=== PATIENT | male | born 1950 | race African-American/Black ===

== ENCOUNTER 2017-01-16 13:12 | Emergency (ER) | payer MEDICARE, OTHER ==
[~2017-01-16] VITALS: Ht 182.9 cm; Wt 172.7 kg
[~2017-01-16 13:12] MED LIST: METH10 PO
[2017-01-16 15:04] LABS: BASOPHILS % (AUTO) 0.5 % (0.0-2.0); EOSINOPHILS % (AUTO) 1.1 % (1.0-6.0); HEMATOCRIT 42.8 % (41-53); HEMOGLOBIN 14.5 g/dL (13.5-17.5); LYMPHOCYTES # (AUTO) 2.4 K/uL (1.0-4.8); LYMPHOCYTES % (AUTO) 33.8 % (22.0-44.0); MEAN CORPUSCULAR VOLUME 94 fL (80-100); MONOCYTES # (AUTO) 0.4 K/uL (0.1-1.0); MONOCYTES % (AUTO) 6.3 % (2.0-9.0); NEUTROPHILS # (AUTO) 4.1 K/uL (1.8-7.7); NEUTROPHILS % (AUTO) 58.3 % (40.0-70.0); PLATELET COUNT (AUTO) 162 K/uL (150-450); RED BLOOD CELL COUNT(AUTO) 4.54 MIL/uL (4.50-5.90); RED CELL DISTRIBUTION WIDTH 15.5 % (11.5-14.5)
[2017-01-16 15:11] LABS: ANION GAP 3 mmol/L (8-16); CALCIUM, TOTAL 8.4 mg/dL (8.8-10.5); CARBON DIOXIDE 32 mmol/L (22-29); CHLORIDE 102 mmol/L (98-107); CREATININE 1.36 mg/dL (0.60-1.30); GLOMERULAR FILTR. RATE CALC > 60 mL/min (>60); POTASSIUM 3.9 mmol/L (3.5-5.1); SODIUM SERUM 137 mmol/L (136-145); UREA NITROGEN, BLOOD 22 mg/dL (7-18)
[2017-01-16 15:18] LABS: ALANINE AMINOTRANSFERASE 42 U/L (12-78); ALBUMIN 3.2 g/dL (3.4-5.0); ASPARTATE AMINOTRANSFERASE 27 U/L (15-37); BILIRUBIN,TOTAL 0.4 mg/dL (0.1-1.0); TOTAL PROTEIN, SERUM 6.9 g/dL (6.4-8.2)
[2017-01-16] MEDS ORDERED: ALBUTEROL SULFATE 2.5 MG/0.5 ML NEB SOLUTION NEB ONE (15:30)
[2017-01-16] MEDS ORDERED: IPRATROPIUM BROMIDE 0.5 MG/2.5 ML NEB SOLUTION NEB ONE (15:30)
[2017-01-16 16:47] VITALS: BP 147/86
== END 2017-01-16 17:16 | disposition home or self-care (01) ==
LOC: EMS 13:14
DX: R53.1 Weakness (principal); S50.812A Abrasion of left forearm, initial encounter; S80.811A Abrasion, right lower leg, initial encounter; M19.90 Unspecified osteoarthritis, unspecified site; I48.91 Unspecified atrial fibrillation; W01.0XXA Fall on same level from slipping, tripping and stumbling without subsequent striking against object, initial encounter; Y93.89 Activity, other specified; Y99.8 Other external cause status; Y92.89 Other specified places as the place of occurrence of the external cause
CPT/HCPCS: 36415; 80053; 85025; 94640; 99284; G0480

== ENCOUNTER 2019-06-30 19:55 | Inpatient (IN) | payer MEDICARE, OTHER ==
[~2019-06-30] VITALS: Ht 182.9 cm; Wt 179.2 kg
[~2019-06-30 19:55] MED LIST changes: +ATOR40TA28 PO; +CARV3 PO; +DIAZ5 PO; +DSS100 PO; +ESCI20TA PO; +FURO40 PO; +GABA-531 PO; +KDUR10 PO; +LISI-662 PO; +OXYC-601 PO; +PANT40TA25 PO; +SOTA80 PO; +SPIR50 PO
[2019-06-30] MEDS ORDERED: IPRATROPIUM BROMIDE 0.5 MG/2.5 ML NEB SOLUTION NEB ONE (20:45)
[2019-06-30] MEDS ORDERED: ALBUTEROL SULFATE 5 MG/ML 20 ML NEB SOLN [BULK] NEB ONE (20:45)
[2019-06-30 21:12] LABS: BASOPHILS % (AUTO) 0.6 % (0.0-2.0); EOSINOPHILS % (AUTO) 1.6 % (1.0-6.0); HEMATOCRIT 37.7 % (41-53); HEMOGLOBIN 12.5 g/dL (13.5-17.5); LYMPHOCYTES # (AUTO) 1.5 K/uL (1.0-4.8); LYMPHOCYTES % (AUTO) 20.7 % (22.0-44.0); MEAN CORPUSCULAR HEMOGLOBIN 30.8 pg (26.0-34.0); MEAN CORPUSCULAR HGB CONC 33.1 G/dL (31.0-37.0); MEAN CORPUSCULAR VOLUME 93 fL (80-100); MONOCYTES # (AUTO) 0.6 K/uL (0.1-1.0); MONOCYTES % (AUTO) 8.8 % (2.0-9.0); NEUTROPHILS # (AUTO) 4.8 K/uL (1.8-7.7); NEUTROPHILS % (AUTO) 68.3 % (40.0-70.0); PLATELET COUNT (AUTO) 145 K/uL (150-450); RED BLOOD CELL COUNT(AUTO) 4.06 MIL/uL (4.50-5.90); RED CELL DISTRIBUTION WIDTH 15.8 % (11.5-14.5)
[2019-06-30 21:32] LABS: ANION GAP 6 mmol/L (8-16); CALCIUM, TOTAL 9.2 mg/dL (8.8-10.5); CARBON DIOXIDE 31 mmol/L (22-29); CHLORIDE 99 mmol/L (98-107); CREATININE 1.15 mg/dL (0.60-1.30); GLOMERULAR FILTR. RATE CALC > 60 mL/min (>60); GLUCOSE,RANDOM 119 mg/dL (70-110); POTASSIUM 4.2 mmol/L (3.5-5.1); SODIUM SERUM 136 mmol/L (136-145); UREA NITROGEN, BLOOD 11 mg/dL (7-18)
[2019-06-30 21:33] LABS: PROTHROMBIN TIME 10.5 SEC (9.4-11.6)
[2019-06-30 21:38] LABS: ALANINE AMINOTRANSFERASE 34 U/L (12-78); ALBUMIN 3.4 g/dL (3.4-5.0); ALKALINE PHOSPHATASE 90 U/L (46-116); ASPARTATE AMINOTRANSFERASE 30 U/L (15-37); BILIRUBIN,TOTAL 0.4 mg/dL (0.1-1.0); CREATINE KINASE, TOTAL ONLY 117 U/L (39-308); TOTAL PROTEIN, SERUM 7.7 g/dL (6.4-8.2)
[2019-06-30] MEDS ORDERED: FUROSEMIDE 40 MG/4 ML VIAL IVP ONE (21:45)
[2019-06-30 22:07] LABS: B-TYPE NATRIURETIC PEPTIDE 426 pg/mL (0-100)
[2019-06-30 22:36] LABS: D-DIMER 0.59 mg/L FEU (0.00-0.50)
[2019-07-01] MEDS ORDERED: SOTALOL HCL 80 MG TABLET PO ONE
[2019-07-01] MEDS ORDERED: ALBUTEROL SULFATE 5 MG/ML 20 ML NEB SOLN [BULK] NEB ONE (00:30)
[2019-07-01] MEDS ORDERED: MethylPREDNISolone SOD SUCC 125 MG/2 ML VIAL IVP ONE (00:30)
[2019-07-01] MEDS ORDERED: SOTA80 PO (01:45)
[2019-07-01] MEDS ORDERED: OXYC-530 PO (01:45)
[2019-07-01] MEDS ORDERED: ATOR40TA28 PO (01:45)
[2019-07-01] MEDS ORDERED: METH10SO PO (01:45)
[2019-07-01] MEDS ORDERED: FURO40 PO (01:45)
[2019-07-01 03:23] LABS: GLUCOSE,POINT OF CARE 172 MG/DL (70-110)
[2019-07-01] MEDS ORDERED: OxyCODONE HCL/ACETAMINOPHEN 5-325 MG TABLET PO ONE (04:30)
[2019-07-01] MEDS ORDERED: MAGNESIUM HYDROXIDE SUSPENSION 30 ML UDCUP PO PRN (08:00)
[2019-07-01] MEDS: FAMOTIDINE 20 MG TABLET PO SCH (08:15)
[2019-07-01] MEDS: HEPARIN SODIUM,PORCINE 5,000 UNITS/ML VIAL SQ SCH ×2 (08:15→15:39)
[2019-07-01] MEDS: DOCUSATE SODIUM 100 MG CAPSULE PO SCH ×2 (08:15→21:49)
[2019-07-01] MEDS: ASPIRIN 81 MG CHEWABLE TABLET PO SCH (08:19)
[2019-07-01] MEDS ORDERED: METHADONE HCL 10 MG TABLET PO SCH (09:00)
[2019-07-01] MEDS ORDERED: CARVEDILOL 3.125 MG TABLET ONE (09:32)
[2019-07-01] MEDS: ATORVASTATIN CALCIUM 20 MG TABLET PO SCH (09:43)
[2019-07-01] MEDS: CARVEDILOL 6.25 MG TABLET PO SCH ×2 (09:43→21:49)
[2019-07-01 12:05] VITALS: BP 149/64
[2019-07-01] MEDS ORDERED: INFLUENZA VIRUS VACCINE QVS 2019-20 (3YR+)/PF 60 MCG/0.5 ML SYRINGE IM ONE (14:45)
[2019-07-01 16:35] VITALS: BP 125/58
[2019-07-01] MEDS: ACETAMINOPHEN 325 MG TABLET PO PRN (17:03)
[2019-07-01] MEDS: ALBUTEROL SULFATE 2.5 MG/0.5 ML NEB SOLUTION NEB PRN (17:39)
[2019-07-01] MEDS: IPRATROPIUM BROMIDE 0.5 MG/2.5 ML NEB SOLUTION NEB PRN (17:39)
[2019-07-01 20:22] VITALS: BP 142/90
[2019-07-02 00:24] VITALS: BP 155/80
[2019-07-02 05:48] VITALS: BP 164/99
[2019-07-02] MEDS: METHADONE HCL 10 MG TABLET PO SCH (06:32)
[2019-07-02 08:30] VITALS: BP 156/70
[2019-07-02] MEDS: IPRATROPIUM BROMIDE 0.5 MG/2.5 ML NEB SOLUTION NEB PRN (08:56)
[2019-07-02] MEDS: ALBUTEROL SULFATE 2.5 MG/0.5 ML NEB SOLUTION NEB PRN (08:57)
[2019-07-02] MEDS: DOCUSATE SODIUM 100 MG CAPSULE PO SCH ×2 (09:00→20:49)
[2019-07-02] MEDS: HEPARIN SODIUM,PORCINE 5,000 UNITS/ML VIAL SQ SCH ×3 (09:15→16:00)
[2019-07-02] MEDS: CARVEDILOL 6.25 MG TABLET PO SCH ×2 (09:16→20:48)
[2019-07-02] MEDS: ASPIRIN 81 MG CHEWABLE TABLET PO SCH (09:16)
[2019-07-02] MEDS: FAMOTIDINE 20 MG TABLET PO SCH (09:17)
[2019-07-02] MEDS: ATORVASTATIN CALCIUM 20 MG TABLET PO SCH (09:17)
[2019-07-02] MEDS ORDERED: IPRATROPIUM BROMIDE 0.5 MG/2.5 ML NEB SOLUTION NEB PRN (14:15)
[2019-07-02] MEDS ORDERED: ALBUTEROL SULFATE 2.5 MG/0.5 ML NEB SOLUTION NEB PRN (14:15)
[2019-07-02 16:34] VITALS: BP 145/91
[2019-07-02 19:28] VITALS: BP 154/86
[2019-07-02] MEDS: ZOLPIDEM TARTRATE 5 MG TABLET PO PRN (22:57)
[2019-07-02] MEDS: ACETAMINOPHEN 325 MG TABLET PO PRN (22:57)
[2019-07-02 23:17] VITALS: BP 152/99
[2019-07-03 07:27] VITALS: BP 146/69
[2019-07-03] MEDS: DOCUSATE SODIUM 100 MG CAPSULE PO SCH ×2 (09:00→20:58)
[2019-07-03] MEDS: HEPARIN SODIUM,PORCINE 5,000 UNITS/ML VIAL SQ SCH ×4 (09:58→23:39)
[2019-07-03] MEDS: ATORVASTATIN CALCIUM 20 MG TABLET PO SCH (09:59)
[2019-07-03] MEDS: CARVEDILOL 6.25 MG TABLET PO SCH ×2 (09:59→20:34)
[2019-07-03] MEDS: FAMOTIDINE 20 MG TABLET PO SCH (09:59)
[2019-07-03] MEDS: ASPIRIN 81 MG CHEWABLE TABLET PO SCH (09:59)
[2019-07-03] MEDS: METHADONE HCL 10 MG TABLET PO SCH (10:02)
[2019-07-03 12:13] VITALS: BP 140/71
[2019-07-03 19:43] VITALS: BP 149/87
[2019-07-03] MEDS: ZOLPIDEM TARTRATE 5 MG TABLET PO PRN (20:38)
[2019-07-03] MEDS: ACETAMINOPHEN 325 MG TABLET PO PRN (20:38)
[2019-07-03 23:38] VITALS: BP 151/78
[2019-07-04 05:23] VITALS: BP 138/88
[2019-07-04 07:39] VITALS: BP_SYST 142; BP_SYST 148; BP_DIAS 82
[2019-07-04 08:34] LABS: APPEARANCE,URINE CLEAR (CLEAR); BILIRUBIN,URINE NEGATIVE (NEGATIVE); GLUCOSE, URINE (UA) NEGATIVE (NEGATIVE); KETONES,URINE NEGATIVE (NEGATIVE); LEUKOCYTE ESTERASE ,URINE NEGATIVE (NEGATIVE); NITRATE,URINE NEGATIVE (NEGATIVE); OCCULT BLOOD,URINE NEGATIVE (NEGATIVE); PROTEIN,URINE NEGATIVE (NEGATIVE)
[2019-07-04] MEDS: FAMOTIDINE 20 MG TABLET PO SCH (08:48)
[2019-07-04] MEDS: CARVEDILOL 6.25 MG TABLET PO SCH (08:48)
[2019-07-04] MEDS: METHADONE HCL 10 MG TABLET PO SCH (08:48)
[2019-07-04] MEDS: DOCUSATE SODIUM 100 MG CAPSULE PO SCH (08:48)
[2019-07-04] MEDS: ASPIRIN 81 MG CHEWABLE TABLET PO SCH (08:48)
[2019-07-04] MEDS: ATORVASTATIN CALCIUM 20 MG TABLET PO SCH (08:49)
[2019-07-04] MEDS: HEPARIN SODIUM,PORCINE 5,000 UNITS/ML VIAL SQ SCH (08:50)
== END 2019-07-04 11:05 | disposition home or self-care (01) | DRG 313 ==
LOC: EMS 19:56 → 5N 07-01 05:00
PROVIDERS: ADMIT Internal Medicine; ATTEND Internal Medicine
DX: R07.89 Other chest pain (principal); Z68.43 Body mass index [BMI] 50.0-59.9, adult; E66.01 Morbid (severe) obesity due to excess calories; G47.33 Obstructive sleep apnea (adult) (pediatric); B19.20 Unspecified viral hepatitis C without hepatic coma; J44.9 Chronic obstructive pulmonary disease, unspecified; I11.0 Hypertensive heart disease with heart failure; I25.10 Atherosclerotic heart disease of native coronary artery without angina pectoris; I48.91 Unspecified atrial fibrillation; I50.9 Heart failure, unspecified; I73.9 Peripheral vascular disease, unspecified; M19.90 Unspecified osteoarthritis, unspecified site; Z87.891 Personal history of nicotine dependence
CPT/HCPCS: 51702; 85379; 93005; 94640; 94644; 96374; 97110; 97116; 97162; 97166; 97530; 97535; J1644; J1940; J2930